=== PATIENT | female | born 1995 | race Two or more races ===

== ENCOUNTER 2020-01-19 18:23 | Emergency (ER) | payer MEDICAID ==
[~2020-01-19] VITALS: Ht 175.3 cm; Wt 226.8 kg
[~2020-01-19 18:23] MED LIST: LEVE1TAB47 PO; LEVO50TA7 PO; ZONI100C43 PO
[2020-01-19 18:48] VITALS: BP 145/76
[2020-01-19] MEDS ORDERED: methylPREDNISolone SOD SUCC 125 MG/2 ML VL IM ONE (19:00)
== END 2020-01-19 19:35 | disposition home or self-care (01) ==
LOC: ER 18:23
DX: B35.4 Tinea corporis (principal)
CPT/HCPCS: 96372; 99283; J2930